=== PATIENT | female | born 1985 | race Caucasian/White ===

== ENCOUNTER 2024-08-20 15:05 | Emergency (ER) | payer OTHER, SELFPAY ==
[2024-08-20 15:13] VITALS: BP 135/87
--- NOTE | 2024-08-20 15:57 | ED.GENMED ---
History of Present Illness
General
Chief Complaint: Abdominal Pain
Source: patient
Time Seen by Provider: 08/20/24 15:34
History of Present Illness
History of Present Illness:
30-year-old female presents to the emergency room complaining of lower abdominal/pelvic pain. Patient has had this discomfort constantly for the past 4 days but intermittently for weeks. She was seen by her internal medicine physician assistant about 2 or 3 weeks ago and
was treated for BV. She believes she took a course of Flagyl. Patient does not report significant discharge and did not have a discharge when she saw her internal medicine physician assistant. She feels the chances of her being exposed to a sexually transmitted disease
are very low she has been with the same partner exclusively for quite some time. Patient reports mild nausea with no vomiting. She had a tubal ligation.
Past History
Past History
ED Past Medical History: Fibromyalgia and Other (PCOS, migraines, kidney stones)
ED Past Surgical History: Cholecystectomy and (X2)
Patient has exhibited threatening behavior?: No
Social History
Tobacco: Former smoker
Alcohol: Occasional
Drug: None
Personal: Single
Living: with family
Employment: Employed
Family History
Family History: Negative Diabetes, Hypertension or CAD
Phy Exam
Physical Exam
Physical Exam:
General: Awake, Alert, Oriented X3. No acute distress.
Vitals: unremarkable
Head: Atraumatic
Eyes: Pupils equal, EOMI
Throat: Airway intact, no exudates
Neck: Trachea midline
Lungs: Clear and equal b/l
Heart: Regular rate, no murmurs
Abd: Soft, mild lower pelvic pain, No pulsatile mass
Genitalia: Normal external genitalia no significant vaginal discharge, no significant cervical motion tenderness, left adnexal
Neuro: Nonfocal
Skin: Warm, dry, no rash
Extremities: pulses equal b/l, no edema
Course
Orders/Labs/Results
Orders:
Orders
08/20/24 15:56
0.9% Sodium Chloride 1000 ml [Nss] 1,000 ml IV BOLUS
Ketorolac [Toradol] 15 mg IV NOW STA
Test Result ONCE
US Pelvis Only (non-obstetric) Urgent
Comment:
Reason For Exam: pelvic pain
08/20/24 16:05
CMP [Comprehensive Metabolic Panel] Urgent
Complete Blood Count/With Diff Urgent
HCG, Serum Qualitative Screen Urgent
Comment: ADD ON
Trichomonas - Wet Prep Urgent
ADELE Source: Vagina
Specimen Description:
Date Specimen was Collected: 08/20/24
Time Specimen was Collected: 16:03
08/20/24 16:34
Add On- LAB Urgent
Tests Added?: hcg serum qual
08/20/24 17:27
Urinalysis Reflex To Culture Urgent
Date Specimen was Collected: 08/20/24
Time Specimen was Collected: 17:21
Chlamydia/GC by PCR Urgent
ADELE Source: Urine
Specimen Description:
Source:: URINE
Date Specimen was Collected: 08/20/24
Time Specimen was Collected: 17:21
08/20/24 16:05
08/20/24 16:05
Vital Signs
Initial and Last Documented VS:
Initial Vital Signs
Temp Pulse Resp BP Pulse Ox
98.0 F 89 18 135/87 100
08/20/24 15:13 08/20/24 15:13 08/20/24 15:13 08/20/24 15:13 08/20/24 15:13
Last Documented Vital Signs
Temp Pulse Resp BP Pulse Ox
98.0 F 78 16 125/81 99
08/20/24 15:13 08/20/24 19:30 08/20/24 19:30 08/20/24 19:00 08/20/24 19:30
MDM/Problems Addressed
Differential Diagnosis Includes:
Ruptured ovarian cyst, ovarian patient, PID, irritable bowel syndrome, patient,
MDM/Problems Addressed:
Ultrasound shows no acute abnormalities. Labs are unremarkable. Reevaluate patient and she continued to have some lower abdominal pain. Discussed CT to further exclude pathology. Patient initially was in agreement with this plan however there
was evidently some family issues at home which she needed to attend to. Patient chose to be discharged and she will follow-up with her primary.
*Radiology
Radiology exam reviewed: radiology read reviewed
*Pulse Oximetry
Patient hypoxic: no
*Critical Care Note
Total Time (30-74mins, 75-104mins- exclusive of procedures): Not Applicable
ED Attending Note
-
Portions of this chart may have been created with voice recognition software.� Occasional wrong word or��sound alike� substitutions may have occurred due to the inherent limitations of voice recognition software.
Discharge Plan
Departure
Patient Disposition: Home (Routine Discharge)
Date of Disposition: 08/20/24
Time of Disposition: 19:31
Patient with high blood pressure during this ER visit?: No
Condition: Good
Discharge Problem:
Abdominal pain
Instructions: Abdominal Pain
Prescriptions:
No Action
prednisone 50 mg tablet
50 mg PO DAILY Qty: 4 0RF
albuterol sulfate 90 mcg/actuation HFA aerosol inhaler
2 puff inhalation Q6H PRN (Reason: shortness of breath or wheezing) Qty: 8.5 0RF
Referrals:
Sydnee Simeon MD [Family Provider] -
Interventions
Interventions:
*Risk Screen - Suicide Last Done: 08/20/24 15:13
*General Assessment Last Done: 08/20/24 16:35
*Neglect/Abuse Screening Last Done: 08/20/24 15:13
*ED- Fall Risk Assessment Last Done: 08/20/24 16:35
*ED COVID-19 Vaccine History Last Done: 08/20/24 15:13
*Nursing Disposition Last Done: 08/20/24 19:46
MQ-Vlpfgi-Qhomyzmllp Assessment Last Done: 08/20/24 16:35
Discharge Date and Time
Discharge Date/Time: 08/20/24 19:46
Print Language: MOHAWK
[2024-08-20 16:01] VITALS: BP 129/85
[2024-08-20] MEDS: NSS 1000 IV (16:07)
[2024-08-20] MEDS: TORADOL 15 MG IV (16:07)
[2024-08-20 16:19] LABS: % Basophils 0.6 % (0-2); % Eosinophils 1.2 % (0-6); % Immature Granulocytes 0.2 % (0-0.5); % Lymphocytes 20.8 % (20.5-51.1); % Monocytes 5.7 % (1.7-9.3); % Neutrophils 71.5 % (42.2-75.2); Absolute Basophils 0.1 10^3/uL (0-0.2); Absolute Eosinophils 0.1 10^3/uL (0-0.7); Absolute Lymphocytes 1.8 10^3/uL (1.2-3.4); Absolute Monocytes 0.5 10^3/uL (0.1-0.6); Absolute Neutrophils 6.1 10^3/uL (1.4-6.5); Hematocrit 37.4 % (37.0-47.0); Hemoglobin 12.9 g/dL (12.0-16.0); Mean Corp Hgb Conc. 34.5 g/dL (33.0-37.0); Mean Platelet Volume 9.5 fL (7.4-10.4); Nucleated Red Blood Cells % 0 %; Platelet Count 255 10^3/uL (130-400); Red Blood Cell Count 4.45 10^6/uL (4.20-5.40); White Blood Cell Count 8.5 10^3/uL (4.8-10.8)
[2024-08-20 16:35] LABS: ALT (SGPT) 22 U/L (0-35); AST (SGOT) 26 U/L (14-36); Alkaline Phosphatase 65 U/L (38-126); Blood Urea Nitrogen 16 mg/dl (7-17); Calcium 9.9 mg/dl (8.4-10.2); Carbon Dioxide 26 mmol/L (22-30); Chloride 102 mmol/L (98-107); Glucose 84 mg/dl (70-99); Potassium 3.8 mmol/L (3.5-5.1); Sodium 138 mmol/L (135-145); Total Bilirubin 0.6 mg/dl (0.2-1.3); eGFR > 60.00
[2024-08-20 17:33] LABS: HCG, Serum Qualitative Screen Negative
[2024-08-20 17:38] LABS: Urine Albumin Negative (Neg - Trace); Urine Bilirubin Negative (Negative); Urine Character Clear (Clear); Urine Color Straw; Urine Glucose Negative (Negative); Urine Ketone Negative (Negative); Urine Leukocyte Negative (Negative); Urine Nitrite Negative (Negative); Urine Occult Blood Negative (Negative); Urine Urobilinogen Negative (Neg - 1+)
[2024-08-20 18:58] VITALS: BP 120/93
[2024-08-20 19:00] VITALS: BP 125/81
== END 2024-08-20 19:46 | disposition home or self-care (01) ==
LOC: EMR 15:05
PROVIDERS: EMERGENCY PHYSICIAN Emergency Medicine; FAMILY PHYSICIAN Student in an Organized Health Care Education/Training Program
DX: R10.30 Lower abdominal pain, unspecified (principal); R10.2 Pelvic and perineal pain; R11.0 Nausea; M79.7 Fibromyalgia; E28.2 Polycystic ovarian syndrome; G43.909 Migraine, unspecified, not intractable, without status migrainosus; Z87.442 Personal history of urinary calculi; Z87.891 Personal history of nicotine dependence; Z90.49 Acquired absence of other specified parts of digestive tract; Z91.048 Other nonmedicinal substance allergy status
CPT/HCPCS: 99284; 96374; 96361; 76856; 80053; 81003; 84703; 85025; 87210; 87491; 87591

== ENCOUNTER 2025-01-30 10:16 | Emergency (ER) | payer OTHER, SELFPAY ==
[2025-01-30 10:20] VITALS: BP 148/115
[2025-01-30 10:51] VITALS: BMI 26.9
[2025-01-30] MEDS: ZOFRAN 4 MG IV (10:58)
[2025-01-30] MEDS: NSS 1000 IV (10:58)
[2025-01-30] MEDS: TORADOL 30 MG IV (10:58)
[2025-01-30 11:17] LABS: Hematocrit 39.5 % (37.0-47.0); Hemoglobin 13.3 g/dL (12.0-16.0); Mean Corp Hgb Conc. 33.7 g/dL (33.0-37.0); Mean Corpuscular Volume 84.8 fL (81.0-99.0); Nucleated Red Blood Cells % 0 %; Platelet Count 258 10^3/uL (130-400); Red Cell Dist. Width 12.0 % (11.5-14.5)
[2025-01-30 11:39] LABS: ALT (SGPT) 16 U/L (0-35); AST (SGOT) 24 U/L (14-36); Albumin 4.3 g/dl (3.5-5.0); Alkaline Phosphatase 69 U/L (38-126); Blood Urea Nitrogen 10 mg/dl (7-17); Calcium 9.2 mg/dl (8.4-10.2); Carbon Dioxide 29 mmol/L (22-30); Chloride 106 mmol/L (98-107); Estimated Creatinine Clearance 85 ml/min; Glucose 97 mg/dl (70-99); Lipase 140 U/L (23-300); Potassium 4.1 mmol/L (3.5-5.1); Sodium 138 mmol/L (135-145); Total Protein 7.1 g/dl (6.3-8.2); eGFR > 60.00
[2025-01-30 11:43] LABS: HCG, Serum Qualitative Screen Negative
--- NOTE | 2025-01-30 11:55 | ED.GENMED ---
History of Present Illness
General
Chief Complaint: Back Pain
Source: patient
Time Seen by Provider: 01/30/25 10:27
History of Present Illness
History of Present Illness:
39-year-old female with past medical history of GERD, previous kidney stones, anxiety/depression/PTSD presenting to the emergency department for evaluation of right-sided lower back/flank pain over the last 2 weeks, seemingly worse over the last 2
to 3 days, initially she thought there may be some blood in her urine but was not sure if this was related to her menstrual, notes no other associated symptoms up until today when she did start with a little bit of nausea. She denies any fevers,
chills, rigors, urinary frequency/urgency/dysuria, changes to her bowels, abdominal pain or any other concerns. Patient states that the pain does feel somewhat reminiscent of her previous kidney stones. Patient is on Wegovy but states she has been
on this for a year and not had any changes to this recently. Social history otherwise noncontributory
Past History
Past History
ED Past Medical History: Fibromyalgia and Other (PCOS, migraines, kidney stones)
ED Past Surgical History: Cholecystectomy, (X2), Gynecological and Other
Patient has exhibited threatening behavior?: No
Social History
Tobacco: Former smoker
Alcohol: Occasional
Drug: None
Personal: Single
Living: with family
Employment: Employed
Family History
Family History: Negative Diabetes, Hypertension or CAD
Review of Systems
Review of Systems
All Other Systems: ROS reviewed and negative except as documented in HPI and ROS
Phy Exam
Physical Exam
Physical Exam:
GENERAL: Alert , in no apparent distress
EYE: clear conjunctiva b/l
HEAD: NCAT
ENT: o/p clr, mmm.
CARDIAC: Regular rate and rhythm .
LUNGS: Clear breath sounds bilaterally, no acute respiratory distress, no wheezes/rales/rhonchi
ABDOMEN: Soft, without focal tenderness, no r/g, no cvat
BACK: No focal areas of tenderness, no rashes
NEUROLOGICAL: Alert and oriented
SKIN: Warm and dry, skin intact.
MUSCULOSKELETAL: No edema, well perfused.
PSYCH: Normal and appropriate interaction.
Scores
Heart Failure Risk
Heart Failure Risk Score: Not Applicable
Heart Score for Chest Pain Patients
STEMI patient?: Not applicable
Withdrawal Assessment of Alcohol
Withdrawal Assessment Completed?: Not applicable
Course
Orders/Labs/Results
Orders:
Orders
01/30/25 10:44
0.9% Sodium Chloride 1000 ml [Nss] 1,000 ml IV BOLUS
Ketorolac [Toradol] 30 mg IV NOW STA
Ondansetron Injectable [Zofran] 4 mg IV NOW STA
Test Result ONCE
01/30/25 11:04
Complete Blood Count/With Diff Urgent
Comprehensive Metabolic Panel Urgent
HCG, Serum Qualitative Screen Urgent
Lipase Urgent
01/30/25 11:50
Oxycodone [Roxicodone] 5 mg PO NOW STA
01/30/25 11:52
Urinalysis Reflex To Culture Urgent
Date Specimen was Collected: 01/30/25
Time Specimen was Collected: 11:51
01/30/25 12:55
CT Abd/pel Without Iv Or Oral Urgent
Comment:
Reason For Exam: right flank pain
01/30/25 11:04
01/30/25 11:04
Vital Signs
Initial and Last Documented VS:
Initial Vital Signs
Temp Pulse Resp BP Pulse Ox
98.4 F 84 18 148/115 99
01/30/25 10:20 01/30/25 10:20 01/30/25 10:20 01/30/25 10:20 01/30/25 10:20
Last Documented Vital Signs
Temp Pulse Resp BP Pulse Ox
98.4 F 75 18 116/67 97
01/30/25 10:20 01/30/25 12:00 01/30/25 12:00 01/30/25 12:00 01/30/25 12:00
MDM/Problems Addressed
Differential Diagnosis Includes:
Musculoskeletal back pain
Renal/Ureteral colic
Pyelonephritis
Cysitis
Shingles
Appy
MDM/Problems Addressed:
39-year-old female presenting with 1 to 2 weeks of right-sided lower back/flank pain, no relief at home with Advil or Motrin. Symptoms do feel somewhat similar to previous kidney stones. Will check labs, urine and CT imaging. Pain control with
Toradol and Zofran for nausea. Disposition pending
*Radiology
Radiology exam reviewed: radiology read reviewed
*Pulse Oximetry
SaO2: 99
Oxygen Mode of Delivery: Room air
Patient hypoxic: no
*Critical Care Note
Total Time (30-74mins, 75-104mins- exclusive of procedures): Not Applicable
Comment
Comment:
On reevaluation patient states pain has not changed despite medications given. She is amenable to Percocet but states she cannot take any other opiates due to side effects from these medications.
Patient Management
Escalation/DeEscalation of care consider admission/obs:
Patient CT scan noted for a 1 mm stone within the right kidney and mild stool throughout the GI tract. Workup was largely unremarkable. Question muscular etiology. Will send home with a prescription for Percocet and a Medrol pack. Patient will
follow-up with primary care provider. Aware of return precautions to the ER.
ED Attending Note
-
Portions of this chart may have been created with voice recognition software.� Occasional wrong word or��sound alike� substitutions may have occurred due to the inherent limitations of voice recognition software.
Discharge Plan
Departure
Patient Disposition: Home (Routine Discharge)
Date of Disposition: 01/30/25
Time of Disposition: 15:10
Patient with high blood pressure during this ER visit?: Yes
Discharge Problem:
Dorsalgia, Kidney stone on right side
Instructions: Low Back Pain (DC)
Prescriptions:
New
oxycodone-acetaminophen [Percocet] 5-325 mg tablet
1 tab PO Q6HPRN PRN (Reason: pain) Qty: 6 0RF
methylprednisolone [Medrol (Nikita)] 4 mg tablets,dose pack
4 mg PO DIRECTED Qty: 21 0RF
No Action
ibuprofen 200 mg Tablet
400 mg PO DAILYPRN PRN (Reason: mild pain)
Wegovy 1.7 mg/0.75 mL pen injector
1.7 mg SC LONG
Referrals:
UNKNOWN - PT DOES,NOT KNOW [Family Provider]
Interventions
Interventions:
*Risk Screen - Suicide Last Done: 01/30/25 10:20
*General Assessment Last Done: 01/30/25 10:20
*Neglect/Abuse Screening Last Done: 01/30/25 10:52
*ED- Fall Risk Assessment Last Done: 01/30/25 10:51
*ED COVID-19 Vaccine History Last Done: 01/30/25 10:51
ED-Musculoskeletal Assessment Last Done: 01/30/25 13:31
Discharge Date and Time
Print Language: YAKUT
[2025-01-30 12:00] VITALS: BP 116/67
[2025-01-30] MEDS: ROXICODONE 5 MG PO (12:23)
[2025-01-30 12:41] LABS: Urine Character Clear (Clear)
[2025-01-30 14:00] VITALS: BP 117/70
[2025-01-30 16:00] VITALS: BP 128/79
== END 2025-01-30 16:59 | disposition home or self-care (01) ==
LOC: EMR 10:16
PROVIDERS: Physician Assistant Medical; EMERGENCY PHYSICIAN Emergency Medicine
DX: N20.0 Calculus of kidney (principal); M54.50 Low back pain, unspecified; R11.0 Nausea; R03.0 Elevated blood-pressure reading, without diagnosis of hypertension; K21.9 Gastro-esophageal reflux disease without esophagitis; F41.9 Anxiety disorder, unspecified; F32.A Depression, unspecified; F43.10 Post-traumatic stress disorder, unspecified; E28.2 Polycystic ovarian syndrome; M79.7 Fibromyalgia; G43.909 Migraine, unspecified, not intractable, without status migrainosus; Z87.442 Personal history of urinary calculi; Z87.891 Personal history of nicotine dependence; Z90.49 Acquired absence of other specified parts of digestive tract; Z91.048 Other nonmedicinal substance allergy status
CPT/HCPCS: 99284; 96374; 96375; 74176; 80053; 81003; 83690; 84703; 85025

== ENCOUNTER 2025-02-28 09:50 | Emergency (ER) | payer OTHER, SELFPAY ==
[2025-02-28 09:56] VITALS: BP 123/86
--- NOTE | 2025-02-28 10:35 | ED.GENMED ---
History of Present Illness
<MEKA Zambrano - Last Filed: 02/28/25 16:50>
General
Chief Complaint: Urinary Symptoms
Source: patient
Exam Limitations: none
Time Seen by Provider: 02/28/25 10:28
Nursing documentation reviewed up to this point in time: agreed with
History of Present Illness
History of Present Illness:
Patient is a 39-year-old female with past medical history of GERD kidney stones anxiety depression PTSD presents to the ER for evaluation of right flank pain associated with urinary frequency urgency cloudy urine and dysuria for the past 2 days.
She was seen here January 30 days ago and diagnosed with a 1 mm nonobstructing stone.
Past History
<MEKA Zambrano - Last Filed: 02/28/25 16:50>
Past History
ED Past Medical History: Fibromyalgia and Other (PCOS, migraines, kidney stones)
ED Past Surgical History: Cholecystectomy, (X2), Gynecological and Other
Patient has exhibited threatening behavior?: No
Social History
Tobacco: Former smoker
Alcohol: Occasional
Drug: None
Personal: Single
Living: with family
Employment: Employed
Family History
Family History: Negative Diabetes, Hypertension or CAD
Phy Exam
<MEKA Zambrano - Last Filed: 02/28/25 16:50>
General Physical Exam
General Presentation: no apparent distress
General age: appears stated age
General Skin: warm and dry
General Habitus: normal
General Mental: alert
General Hydration: appears well hydrated
Cardiovascular Exam
Cardiovascular Exam: regular rate/rhythm and no murmur
Pulmonary Exam
Pulmonary Exam: lungs clear and no respiratory distress
Neurological Exam
Neurological Exam: alert and oriented x3
Musculoskeletal Exam
Musculoskeletal Exam: full ROM
Skin Exam
Skin Exam: normal color and warm/dry
Psychiatric Exam
Psychiatric Exam: normal mood/affect
Course
<MEKA Zambrano - Last Filed: 02/28/25 16:50>
Orders/Labs/Results
Orders:
Orders
02/28/25 10:15
Test Result ONCE
02/28/25 11:25
HCG, Urine Qualitative Screen Urgent
Date Specimen was Collected: 02/28/25
Time Specimen was Collected: 10:15
Urinalysis Reflex To Culture Urgent
Date Specimen was Collected: 02/28/25
Time Specimen was Collected: 10:15
Urine Microscopic Reflex Cult Urgent
Urine Culture Urgent
ADELE Source: U
Specimen Description:
Obtained by: Random
Date Specimen was Collected: 02/28/25
Time Specimen was Collected: 10:15
02/28/25 11:28
CT Abd/pel Without Iv Or Oral Urgent
Comment:
Reason For Exam: flank pain
IV Insert/Care/Rem.- Treatment PRN
0.9% Sodium Chloride 1000 ml [Nss] 1,000 ml IV BOLUS
Ketorolac [Toradol] 15 mg IV NOW STA
02/28/25 11:45
Complete Blood Count/With Diff Urgent
Comprehensive Metabolic Panel Urgent
02/28/25 15:22
Cefdinir [Omnicef] 300 mg PO NOW STA
Abnormal Lab Results
02/28/25 02/28/25
11:25 11:45
Lymphocytes % 20.2 L %
(20.5-51.1)
Ur Occult Blood Reflex 1+ A
(Negative)
Leukocyte Esterase Rfl 1+ A
(Negative)
Urine RBC 3-6 A /HPF
(0-2)
Urine WBC (Reflex) 11-15 A /HPF
(0-5)
Urine Bacteria (Reflex) Few A
(Negative)
02/28/25 11:45
02/28/25 11:45
Vital Signs
Initial and Last Documented VS:
Initial Vital Signs
Temp Pulse Resp BP Pulse Ox
98.5 F 96 18 123/86 97
02/28/25 09:56 02/28/25 09:56 02/28/25 09:56 02/28/25 09:56 02/28/25 09:56
Last Documented Vital Signs
Temp Pulse Resp BP Pulse Ox
98.5 F 76 18 113/93 99
02/28/25 09:56 02/28/25 11:47 02/28/25 11:47 02/28/25 13:00 02/28/25 13:00
<Jose Rodriguez, DO - Last Filed: 02/28/25 15:59>
Orders/Labs/Results
Orders:
Orders
02/28/25 10:15
Test Result ONCE
02/28/25 11:25
HCG, Urine Qualitative Screen Urgent
Date Specimen was Collected: 02/28/25
Time Specimen was Collected: 10:15
Urinalysis Reflex To Culture Urgent
Date Specimen was Collected: 02/28/25
Time Specimen was Collected: 10:15
Urine Microscopic Reflex Cult Urgent
Urine Culture Urgent
ADELE Source: U
Specimen Description:
Obtained by: Random
Date Specimen was Collected: 02/28/25
Time Specimen was Collected: 10:15
02/28/25 11:28
CT Abd/pel Without Iv Or Oral Urgent
Comment:
Reason For Exam: flank pain
IV Insert/Care/Rem.- Treatment PRN
0.9% Sodium Chloride 1000 ml [Nss] 1,000 ml IV BOLUS
Ketorolac [Toradol] 15 mg IV NOW STA
02/28/25 11:45
Complete Blood Count/With Diff Urgent
Comprehensive Metabolic Panel Urgent
02/28/25 15:22
Cefdinir [Omnicef] 300 mg PO NOW STA
Abnormal Lab Results
02/28/25 02/28/25
11:25 11:45
Lymphocytes % 20.2 L %
(20.5-51.1)
Ur Occult Blood Reflex 1+ A
(Negative)
Leukocyte Esterase Rfl 1+ A
(Negative)
Urine RBC 3-6 A /HPF
(0-2)
Urine WBC (Reflex) 11-15 A /HPF
(0-5)
Urine Bacteria (Reflex) Few A
(Negative)
02/28/25 11:45
02/28/25 11:45
Vital Signs
Initial and Last Documented VS:
Initial Vital Signs
Temp Pulse Resp BP Pulse Ox
98.5 F 96 18 123/86 97
02/28/25 09:56 02/28/25 09:56 02/28/25 09:56 02/28/25 09:56 02/28/25 09:56
Last Documented Vital Signs
Temp Pulse Resp BP Pulse Ox
98.5 F 76 18 113/93 99
02/28/25 09:56 02/28/25 11:47 02/28/25 11:47 02/28/25 13:00 02/28/25 13:00
<MEKA Zambrano - Last Filed: 02/28/25 16:50>
MDM/Problems Addressed
Differential Diagnosis Includes:
Not limited to UTI, renal colic, pyelonephritis
MDM/Problems Addressed:
39-year-old female complained of UTI symptoms history of kidney stone previously. Patient presents awake alert no acute distress CAT scan shows a 2 mm nephrolith in the lower pole of the right kidney no evidence of urethral calculus. She is
afebrile with a normal white count normal renal function. Patient does have UTI symptoms 11�15 white blood cells. With UTI symptoms would recommend treatment.
Case discussed with urology again this is patient's second visit for right flank pain however based on small stone in the lower pole of the right kidney as per urology likely not etiology for the cause of her pain. He does recommend antibiotics for
UTI also solifenacin to reduce UTI symptoms. Will DC close follow-up. No other concerning symptoms or causes of patient's pain on CAT scan. She is well-appearing afebrile no recent fever chills or rash.
<MEKA Zambrano - Last Filed: 02/28/25 16:50>
*Radiology
Radiology exam reviewed: radiology read reviewed
*Pulse Oximetry
SaO2: 97
Oxygen Mode of Delivery: Room air
Patient hypoxic: no
*Critical Care Note
Total Time (30-74mins, 75-104mins- exclusive of procedures): Not Applicable
<MEKA Zambrano - Last Filed: 02/28/25 16:50>
Patient Management
Discussion with other providers: Mri Technician (Urology Dr. Quiajno )
ED Attending Note
<MEKA Zambrano - Last Filed: 02/28/25 16:50>
-
Portions of this chart may have been created with voice recognition software.� Occasional wrong word or��sound alike� substitutions may have occurred due to the inherent limitations of voice recognition software.
<Jose Rodriguez DO - Last Filed: 02/28/25 15:59>
ED Attending Note
Patient seen and examined by attending physician: Yes
I performed the substantive portion of visit, reviewed & personally made and approve the management plan that is documented in note by myself or UMESH.: Yes
ED Attending Note:
I evaluated the patient at bedside. CT reviewed. Labs unremarkable. CLINICAL PROGRAM CONSULTANT discussed with Dr. Quijano and agrees with outpatient management and no clear indication for admission to the hospital or emergency urologic procedure at this time. Will
give short course of Percocet and advised her to not take this when she works.
Discharge Plan
Departure
Patient Disposition: Home (Routine Discharge)
Date of Disposition: 02/28/25
Time of Disposition: 15:25
Patient with high blood pressure during this ER visit?: Yes
Condition: Fair
Covid-19: Not Applicable
Discharge Problem:
Acute flank pain, UTI (urinary tract infection)
Instructions: Urinary Tract Infection, Adult (DC), Flank pain - ED (DC), BLOOD PRESSURE
Prescriptions:
New
cefdinir 300 mg capsule
300 mg PO BID Qty: 14 0RF
solifenacin 10 mg tablet
10 mg PO DAILY Qty: 14 0RF
oxycodone-acetaminophen [Percocet] 5-325 mg tablet
1 - 2 tab PO Q6HPRN PRN (Reason: pain) Qty: 14 0RF
No Action
ibuprofen 200 mg Tablet
400 mg PO DAILYPRN PRN (Reason: mild pain)
Wegovy 1.7 mg/0.75 mL pen injector
1.7 mg SC LONG
oxycodone-acetaminophen [Percocet] 5-325 mg tablet
1 tab PO Q6HPRN PRN (Reason: pain) Qty: 6 0RF
methylprednisolone [Medrol (Nikita)] 4 mg tablets,dose pack
4 mg PO DIRECTED Qty: 21 0RF
Referrals:
UNKNOWN - PT DOES,NOT KNOW [Family Provider]
Activity Restrictions/Additional Instructions:
As discussed a prescription for antibiotic was sent to your pharmacy to take twice a day for the next week. In addition additional medication was sent for UTI symptoms take as directed. Please call urology today to make an appointment as soon as
possible. Stay well hydrated. Return if any worsening of symptoms.
Interventions
Interventions:
*Risk Screen - Suicide Last Done: 02/28/25 09:56
*General Assessment Last Done: 02/28/25 09:56
*Neglect/Abuse Screening Last Done: 02/28/25 10:52
*ED COVID-19 Vaccine History Last Done: 02/28/25 10:52
*ED Influenza Vaccine History Last Done: 02/28/25 10:52
*Nursing Disposition Last Done: 02/28/25 16:22
ED-Female Genitourinary Assessment Last Done: 02/28/25 10:52
Discharge Date and Time
Discharge Date/Time: 02/28/25 16:23
Print Language: UKRAINIAN
[2025-02-28 10:53] VITALS: BMI 25.8
[2025-02-28 11:35] LABS: Urine Character Clear (Clear)
[2025-02-28 11:41] LABS: HCG, Urine Qualitative Screen Negative
[2025-02-28] MEDS: TORADOL 15 MG IV (11:44)
[2025-02-28] MEDS: NSS 1000 IV (11:45)
[2025-02-28 11:47] VITALS: BP 128/87
[2025-02-28 11:52] LABS: Hematocrit 39.7 % (37.0-47.0); Hemoglobin 13.4 g/dL (12.0-16.0); Mean Corp Hgb Conc. 33.8 g/dL (33.0-37.0); Mean Corpuscular Volume 85.9 fL (81.0-99.0); Nucleated Red Blood Cells % 0 %; Platelet Count 276 10^3/uL (130-400); Red Cell Dist. Width 12.1 % (11.5-14.5)
[2025-02-28 12:13] LABS: ALT (SGPT) 13 U/L (0-35); AST (SGOT) 21 U/L (14-36); Albumin 4.1 g/dl (3.5-5.0); Alkaline Phosphatase 64 U/L (38-126); Blood Urea Nitrogen 9 mg/dl (7-17); Calcium 9.0 mg/dl (8.4-10.2); Carbon Dioxide 29 mmol/L (22-30); Chloride 105 mmol/L (98-107); Estimated Creatinine Clearance 85 ml/min; Glucose 88 mg/dl (70-99); Potassium 4.1 mmol/L (3.5-5.1); Sodium 137 mmol/L (135-145); Total Protein 7.3 g/dl (6.3-8.2); eGFR > 60.00
[2025-02-28 13:00] VITALS: BP 113/93
[2025-02-28] MEDS: OMNICEF 300 MG PO (16:04)
== END 2025-02-28 16:23 | disposition home or self-care (01) ==
LOC: EMR 09:50
PROVIDERS: Nurse Practitioner; Student in an Organized Health Care Education/Training Program; EMERGENCY PHYSICIAN Emergency Medicine
DX: N39.0 Urinary tract infection, site not specified (principal); N20.0 Calculus of kidney; R03.0 Elevated blood-pressure reading, without diagnosis of hypertension; K21.9 Gastro-esophageal reflux disease without esophagitis; F41.9 Anxiety disorder, unspecified; F32.A Depression, unspecified; F43.10 Post-traumatic stress disorder, unspecified; M79.7 Fibromyalgia; E28.2 Polycystic ovarian syndrome; Z87.891 Personal history of nicotine dependence; Z87.442 Personal history of urinary calculi
CPT/HCPCS: 99284; 96374; 96361 ×2; 74176; 80053; 81003; 81015; 81025; 85025; 87077; 87086; 87186